=== PATIENT | female | born 1935 | race African-American/Black ===

== ENCOUNTER 2018-04-26 22:46 | Emergency (ER) | payer MEDICARE, MEDICAID ==
[~2018-04-26] VITALS: Ht 167.6 cm; Wt 81.6 kg
[2018-04-26] MEDS ORDERED: SODIUM BICARBONATE 8.4% INJ 50ML SYRINGE IV ONE (22:52)
[2018-04-26] MEDS ORDERED: EPINEPHrine HCL 1 MG/10 ML SYRG IV ONE (22:52)
[2018-04-26] MEDS ORDERED: CALCIUM CHLOR(10%) 100MG/ML 10ML SYRINGE IV ONE (22:52)
[2018-04-26 22:54] VITALS: BP 0/0
== END 2018-04-26 23:00 | disposition expired ==
LOC: EDBD 22:46 → ER 22:51
DX: I46.9 Cardiac arrest, cause unspecified (principal); I48.91 Unspecified atrial fibrillation; E11.9 Type 2 diabetes mellitus without complications; I50.9 Heart failure, unspecified
CPT/HCPCS: 31500; 92950; 99285; J0171